=== PATIENT | female | born 1960 | race Caucasian/White ===

== ENCOUNTER → 2022-08-14 11:03 | Outpatient (BNVA) | payer MEDICARE, BC, MEDICAID, SELFPAY | PROVIDERS: Referring Provider Internal Medicine; Visit Provider Internal Medicine Rheumatology | DX: M15.0 Primary generalized (osteo)arthritis (principal); M47.816 Spondylosis without myelopathy or radiculopathy, lumbar region; M21.612 Bunion of left foot; M21.611 Bunion of right foot; M77.31 Calcaneal spur, right foot; M81.0 Age-related osteoporosis without current pathological fracture; K50.90 Crohn's disease, unspecified, without complications; K21.9 Gastro-esophageal reflux disease without esophagitis; I10 Essential (primary) hypertension; M06.9 Rheumatoid arthritis, unspecified; Z85.9 Personal history of malignant neoplasm, unspecified | CPT/HCPCS: 72100; 73130; 73630; 99204 ==

== ENCOUNTER → 2023-01-24 12:31 | Outpatient (BNVA) | payer MEDICARE, BC, SELFPAY | PROVIDERS: PCP Internal Medicine; Visit Provider Internal Medicine Rheumatology | DX: Z87.19 Personal history of other diseases of the digestive system (principal); M06.9 Rheumatoid arthritis, unspecified; Z79.899 Other long term (current) drug therapy; R22.33 Localized swelling, mass and lump, upper limb, bilateral; M47.816 Spondylosis without myelopathy or radiculopathy, lumbar region | CPT/HCPCS: 99214 ==